=== PATIENT | female | born 1980 | race Caucasian/White ===

== ENCOUNTER 2025-04-05 10:11 | Inpatient (IN) | payer BC ==
[2025-04-02 11:17] LABS: Hematocrit 36.1 % (34.9-44.5); Hemoglobin 11.2 g/dL (12.0-15.5); Platelet Count 305 10x3/uL (150-450)
[2025-04-02 12:10] LABS: Hep B Surf Ag Non-Reactive S/CO (NonReactive)
[2025-04-02 12:11] LABS: Syphilis Antibody Index 0.02 S/CO (<1.00 Non-Reactive)
[2025-04-05] MEDS ORDERED: Ondansetron PF 4 MG/2 ML Vial IVP PRN ×3 (10:20→11:19)
[2025-04-05] MEDS ORDERED: Bicitra 30 ML UDCUP PO PRN (10:20)
[2025-04-05] MEDS ORDERED: Oxytocin 30 units/NS 500 ML 500 ML IV SCH ×2 (10:20→14:52)
[2025-04-05 10:29] VITALS: BMI 44.4
[2025-04-05] MEDS ORDERED: HYDROmorphone 0.5 MG/0.5 ML SYRINGE SLOW IVP PRN (11:19)
[2025-04-05] MEDS ORDERED: Meperidine HCl/PF 25 MG (1 mL) VIAL SLOW IVP PRN (11:19)
[2025-04-05] MEDS ORDERED: diphenhydrAMINE 50 MG/ML VIAL IVP PRN (11:19)
[2025-04-05] MEDS ORDERED: Communication Order-Pharmacy FS SCH (11:30)
[2025-04-05] MEDS: Famotidine/PF 20 mg/2ml Vial SLOW IVP PRN (11:36)
[2025-04-05] MEDS: Phenylephrine 40 MG/NS 250 ML 250 ML ONE (13:56)
[2025-04-05] MEDS: Ondansetron PF 4 MG/2 ML Vial ONE ×2 (13:56→13:57)
[2025-04-05] MEDS: Famotidine/PF 20 mg/2ml Vial ONE (13:57)
[2025-04-05] MEDS: Dexamethasone 10 MG/ML VIAL ONE (13:57)
[2025-04-05] MEDS: Oxytocin 10 UNITS/ML VIAL ONE ×2 (13:57)
[2025-04-05] MEDS ORDERED: Ketorolac Tromethamine 30 MG (1 mL) VIAL IVP PRN (14:00)
[2025-04-05] MEDS: hydrALAZINE 20 MG/ML VIAL SLOW IVP PRN (14:42)
[2025-04-05] MEDS: Ketorolac Tromethamine 30 MG (1 mL) VIAL IVP SCH (14:47)
[2025-04-05] MEDS ORDERED: diphenhydrAMINE 25 MG CAP PO PRN (14:52)
[2025-04-05] MEDS ORDERED: Acetaminophen 325 MG TAB PO PRN (14:52)
[2025-04-05] MEDS ORDERED: Boostrix 0.5 ML (Tdap) VIAL (>/=7 yrs of age) IM ONE (14:52)
[2025-04-05] MEDS ORDERED: Simethicone Chewable 80 MG TAB PO PRN (14:52)
[2025-04-05] MEDS ORDERED: Bisacodyl 10 MG SUPP PR PRN (14:52)
[2025-04-05] MEDS ORDERED: hydrALAZINE 20 MG/ML VIAL SLOW IVP PRN ×3 (14:52→16:03)
[2025-04-05] MEDS ORDERED: Calcium Gluc 4.6 MEQ/10 ML (100 MG/ML) SLOW IVP PRN (16:03)
[2025-04-05] MEDS: Magnesium Sulfate 20 gm/500 ml 20 GM/500 ML BAG IVPB SCH (16:27)
[2025-04-05] MEDS: Ketorolac Tromethamine 30 MG (1 mL) VIAL ONE (17:10)
[2025-04-05] MEDS: Magnesium Sulfate 20 gm/500 ml 20 GM/500 ML BAG ONE (17:10)
[2025-04-05] MEDS: Ferrous Sulfate 325 MG TAB PO SCH (20:12)
[2025-04-05] MEDS: QUEtiapine 25 MG TAB PO SCH (21:14)
[2025-04-06] MEDS: Ibuprofen 800 MG TAB PO SCH ×2 (00:01→18:08)
[2025-04-06] MEDS: HYDROcodone/Acetaminophen 5/325 mg Tablet PO PRN ×3 (02:40→18:08)
[2025-04-06] MEDS ORDERED: hydrALAZINE 20 MG/ML VIAL SLOW IVP PRN (16:07)
[2025-04-06] MEDS ORDERED: Ondansetron PF 4 MG/2 ML Vial IVP PRN (16:07)
[2025-04-06] MEDS ORDERED: Lanolin Ointment 7 GM TUBE TOP PRN (16:07)
[2025-04-06] MEDS ORDERED: HYDROcodone/Acetaminophen 5/325 mg Tablet PO PRN (16:07)
[2025-04-06] MEDS: Ferrous Sulfate 325 MG TAB PO SCH (17:40)
[2025-04-07] MEDS: Simethicone Chewable 80 MG TAB PO PRN (01:44)
[2025-04-07] MEDS: Ferrous Sulfate 325 MG TAB PO SCH (08:43)
[2025-04-08] MEDS: hydrALAZINE 20 MG/ML VIAL SLOW IVP SCH (06:50)
[2025-04-08] MEDS: hydrALAZINE 20 MG/ML VIAL ONE (06:56)
[2025-04-08] MEDS: NIFEdipine XL 30 MG ER.TAB PO SCH (12:31)
[2025-04-09] MEDS: NIFEdipine XL 60 MG ER.TAB PO SCH (08:24)
[2025-04-09] MEDS ORDERED: NIFEdipine XL 30 MG ER.TAB PO SCH (09:00)
[2025-04-09 13:13] VITALS: TEMP 98.1
[2025-04-09 14:47] VITALS: BP 144/75
== END 2025-04-09 13:50 | disposition home or self-care (01) | DRG 785 ==
LOC: CSHLD 10:11 → CSHPP 04-06 16:05
PROVIDERS: ADMIT Obstetrics & Gynecology; ATTEND Obstetrics & Gynecology
PROC: 10D00Z1 Extraction of Products of Conception, Low, Open Approach (ICD-10-PCS; principal; 2025-04-05)
PROC: 0UT70ZZ Resection of Bilateral Fallopian Tubes, Open Approach (ICD-10-PCS; 2025-04-05)
DX: O14.13 Severe pre-eclampsia, third trimester (principal); O34.219 Maternal care for unspecified type scar from previous cesarean delivery; Z37.0 Single live birth; Z3A.38 38 weeks gestation of pregnancy; Z88.1 Allergy status to other antibiotic agents
CPT/HCPCS: 51702; 85014; 85018; 85049; 86780; 86850; 86900; 86901; 87340; 88302; J0360; J1100; J1885; J2274; J2550; J2590; J3475; J7120